=== PATIENT | male | born 1965 | race Caucasian/White ===

== ENCOUNTER → 2017-02-16 | Outpatient (CLI) | payer MEDICARE, BC | LOC: RAD 09:57 | PROVIDERS: ATTEND Specialist | DX: C76.0 Malignant neoplasm of head, face and neck (principal); C01 Malignant neoplasm of base of tongue | CPT/HCPCS: 70491 ==

== ENCOUNTER → 2017-03-20 | Outpatient (CLI) | payer MEDICARE, BC | LOC: RAD 16:18 | PROVIDERS: ATTEND Specialist | DX: C01 Malignant neoplasm of base of tongue (principal); C76.0 Malignant neoplasm of head, face and neck | CPT/HCPCS: 78815; A9552 ==

== ENCOUNTER → 2018-01-27 | Outpatient (CLI) | payer MEDICARE, BC ==
--- NOTE | 2018-01-27 11:03 | RADIOLOGY REPORT (SQ) ---
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 Reconstructed coronal and sagittal MPR images reviewed. All images stored on PACS. All CT scanners at this facility use dose modulation, iterative reconstruction, and/or weight based d osing when appropriate to reduce radiation dose to as low as reasonably achievable (ALARA). [facility]: Dose Right [facility]: CareDose [facility]: Dose Right [facility]: Teradose 4D [facility]: SquaredOut CONTRAST TYPE AND DOSE: contrast/concentration: Isovue 370.00 mg/ml; Total Contrast Delivered: 75.0 ml; Total Saline Delivered: 55.0 ml RENAL FUNCTION: Creatinine 1.3 RADIATION DOSE: . LIMITATIONS: None. FINDINGS: SKULL BASE: Intact. MAJOR SALIVARY GLANDS: No solid or cystic masses. No inflammatory changes. LYMPHADENOPATHY: No adenopathy. MUCOSAL MASSES OR ASYMMETRY: The previously described subtle asymmetric thickening of the left mucosa l tissues along the inferior aspect of the left tonsillar fossa, extending into the left lateral hype r pharyngeal wall, left vallecular ala and left piriform recess appears stable. No obvious recurrent mass is identified. LARYNX/CORDS: No abnormal findings. VASCULAR STRUCTURES: The major vessels are patent. LUNG APICES: Clear. BONES: Intact. THYROID: Normal size. No masses. PARANASAL SINUSES: Clear. OTHER: No other significant finding. IMPRESSION: Stable findings as compared to the previous studies. No definite evidence for a recurre nt mass is seen. If clinical suspicions remain high PET-CT scan is recommended for further evaluatio n. Other findings as noted above TECHNICAL DOCUMENTATION: JOB ID: [id number] Quality ID # [id number]: Final reports with documentation of one or more dose reduction techniques (e.g., Au tomated exposure control, adjustment of the mA and/or kV according to patient size, use of iterative reconstruction technique) 2010 [employer]- All Rights Reserved Reading location - IP/workstation name: [facility]
== END ==
LOC: RAD 10:27
PROVIDERS: ATTEND Radiology Radiation Oncology
DX: C79.9 Secondary malignant neoplasm of unspecified site (principal)
CPT/HCPCS: 70491; 82565

== ENCOUNTER 2018-10-29 18:28 | Emergency (ER) | payer MEDICARE, BC ==
[2018-10-29] MEDS ORDERED: KETOROLAC TROMETHAMINE INJ/PF 30 MG/1 ML SDV IV ONE (18:49)
--- NOTE | 2018-10-29 18:53 | ER Document Report ---
ED General - General Chief Complaint: Fall Stated Complaint: HIP PAIN Time Seen by Provider: 10/29/18 18:34 Notes: Patient is a 53-year-old male with a past medical history of hypertension, hyper lipidemia, diabetes, morbid obesity who presents after mechanical fall onto his left hip. The patient states that he slipped and fell off a step landing directly to the hip but did not sustain additional trauma. He states that since that time he has had a severe, constant throbbing pain to the left hip worsened by any attempt at movement of the hip. He states that he has been unable to bear weight secondary to pain. He has not tried anything to improve the pain. EMS does transfer the patient to the emergency department [place], did give 100 mg of fentanyl for analgesia prior to arrival. Patient denies any long-standing problems with his hip, no prior surgical interventions to the left hip. He has not contacted his primary care physician regarding today's concerns TRAVEL OUTSIDE OF THE [place] IN LAST 30 DAYS: No - Related Data Allergies/Adverse Reactions: cetuximab [From Erbitux] Allergy (Severe, Verified 11/23/16 13:16) Anaphylaxis Past Medical History - General Information source: Patient - Social History Smoking Status: Never Smoker Frequency of alcohol use: None Drug Abuse: None Lives with: Spouse/Significant other Family History: Reviewed & Not Pertinent Patient has suicidal ideation: No Patient has homicidal ideation: No - Past Medical History Cardiac Medical History: Reports: Hx Hypercholesterolemia, Hx Hypertension - on meds Denies: Hx Coronary Artery Disease, Hx Heart Attack - has heart monitor implanted Pulmonary Medical History: Denies: Hx Asthma, Hx Bronchitis, Hx COPD, Hx Pneumonia Neurological Medical History: Reports: Hx Cerebrovascular Accident - dizziness. Denies: Hx Seizures Endocrine Medical History: Reports: Hx Diabetes Mellitus Type 2 Renal/ Medical History: Denies: Hx Peritoneal Dialysis Musculoskeletal Medical History: Denies Hx Arthritis - Immunizations Hx Diphtheria, Pertussis, Tetanus Vaccination: No Review of Systems - Review of Systems Notes: Constitutional: Negative for fever. Eyes: Negative for visual changes. ENT: Negative for facial injury Cardiovascular: Negative for chest injury. Respiratory: Negative for shortness of breath. Gastrointestinal: Negative for abdominal injury. Genitourinary: Negative for genital injury Musculoskeletal: Positive for left hip injury Skin: Negative for laceration/abrasions. Neurological: Negative for head injury. Physical Exam - Vital signs Vitals: Temp Pulse Resp BP Pulse Ox 98.8 F 81 18 104/66 95 10/29/18 18:42 12 18:42 12 18:42 10/29/18 18:42 10/29/18 18:42 Interpretation: Normal Notes: PHYSICAL EXAMINATION: GENERAL: Well-appearing, no acute distress. HEAD: Atraumatic, normocephalic. EYES: Pupils equal round and reactive to light, extraocular movements intact, sclera anicteric, conjunctiva are normal. ENT: nares patent, no oral pharyngeal trauma. No hemotympanum, no Onofre's sign , no raccoon eyes. NECK: No midline cervical spine tenderness. Patient able to move their head to 45 bilaterally without any discomfort. LUNGS: Breath sounds clear to auscultation bilaterally and equal. No wheezes rales or rhonchi. HEART: Regular rate and rhythm without murmurs. 2+ DP pulses bilaterally CHEST WALL: No ecchymosis over the chest wall. ABDOMEN: Soft, nontender, normoactive bowel sounds. No guarding, no rebound. No abdominal bruising EXTREMITIES: Range of motion testing not performed on left hip secondary to pain. Pain with axial loading and internal rotation of the left hip. Extremity examination otherwise unremarkable. BACK: No midline spinal tenderness, step-offs, or deformities. NEUROLOGICAL: Moves oxamide spontaneously on command. PSYCH: Normal mood, normal affect. SKIN: Warm, Dry, normal turgor, no rashes or lesions noted. Course - Re-evaluation Re-evalutation: 10/29/18 18:49 Patient presents with pain to his left hip after a slip and fall directly onto the left hip just prior to arrival. The patient states that he slipped on a step and landed directly on the hip but not seen any additional injuries. On exam he has exquisite pain with axial loading and internal/external rotation of the left hip. No visible deformity or bruising. No leg shortening. No trauma to any other location of his body. Remainder of trauma assessment is otherwise unremarkable. X-rays pending. Pain control is been provided. 10/29/18 20:00 X-rays without any evidence of fracture or dislocation of the left hip. Suspect likely soft tissue versus ligamentous injury. Patient has been provided crutches, advised to follow-up closely with orthopedic surgeon and his primary care physician. Repeat assessment remains without any additional areas of concern other than the left hip. At this time will discharge with return precautions and follow-up recommendations. Verbal discharge instructions given a the bedside and opportunity for questions given. Medication warnings reviewed. Patient is in agreement with this plan and has verbalized understanding of return precautions and the need for primary care follow-up in the next 24-72 hours. - Vital Signs Vital signs: Temp Pulse Resp BP Pulse Ox 98.8 F 81 18 104/66 95 10/29/18 18:42 10/29/18 18:42 10/29/18 18:42 10/29/18 18:42 10/29/18 18:42 - Diagnostic Test Radiology reviewed: Image reviewed, Reports reviewed Radiology results interpreted by me: 10/29/18 20:00 Left hip x-ray: No acute fracture or dislocation Discharge - Discharge Clinical Impression: Fall Qualifiers: Encounter type: initial encounter Qualified Code(s): W19.XXXA - Unspecified fall, initial encounter Injury of left hip Qualifiers: Encounter type: initial encounter Qualified Code(s): S79.912A - Unspecified injury of left hip, initial encounter Condition: Good Disposition: HOME, SELF-CARE Additional Instructions: Your x-ray does not show any acute fracture today. You likely have a ligamentous strain or a soft tissue injury. For your pain: Take ibuprofen 600 mg and acetaminophen 1000 mg every 6 hours together as needed for pain. Continue to apply ice to the area is much your able. Please follow-up with your primary care physician if you do not have improving your symptoms in the next 1-2 weeks. Please return immediately if you develop weakness, numbness, spreading redness from the area, or any other symptoms that are concerning to you. Referrals: WILDA RUBY DO [ACTIVE STAFF] - Follow up as needed ADRIANA PARSONS MD [ACTIVE STAFF] - Follow up as needed
--- NOTE | 2018-10-29 19:18 | RADIOLOGY REPORT (SQ) ---
EXAM DESCRIPTION: HIP LEFT AP/LATERAL COMPLETED DATE/TIME: 10/29/2018 7:07 pm REASON FOR STUDY: fall, pain COMPARISON: None. NUMBER OF VIEWS: Two views. TECHNIQUE: AP pelvis and additional frog-leg view of the left hip. LIMITATIONS: None. FINDINGS: MINERALIZATION: Normal. LEFT HIP: No fracture or dislocation. No worrisome bone lesions. RIGHT HIP: No fracture or dislocation. No worrisome bone lesions. PUBIS AND ISCHIUM: No fracture. PELVIS: No fracture. SACRUM: No fracture or dislocation. No worrisome bone lesions. LOWER LUMBAR SPINE: No fracture or dislocation. No worrisome bone lesions. No significant disc disea se. SOFT TISSUES: No findings. OTHER: No other significant finding. IMPRESSION: NEGATIVE STUDY OF THE LEFT HIP AND PELVIS. NO RADIOGRAPHIC EVIDENCE OF ACUTE INJURY. TECHNICAL DOCUMENTATION: JOB ID: [id number] [employer]- All Rights Reserved Reading location - IP/workstation name: [email or web address]
[2018-10-29 20:55] VITALS: BP 121/71
== END 2018-10-29 21:08 | disposition home or self-care (01) ==
LOC: ER 18:28
DX: S79.912A Unspecified injury of left hip, initial encounter (principal); W10.9XXA Fall (on) (from) unspecified stairs and steps, initial encounter; I10 Essential (primary) hypertension; E78.5 Hyperlipidemia, unspecified; E11.9 Type 2 diabetes mellitus without complications; Z86.73 Personal history of transient ischemic attack (TIA), and cerebral infarction without residual deficits; E78.00 Pure hypercholesterolemia, unspecified
CPT/HCPCS: 99284; 96374; 73502; J1885